=== PATIENT | female | born 1965 | race Caucasian/White ===

== ENCOUNTER 2018-09-09 02:48 | Observation (INO) ==
[2018-09-09 02:52] VITALS: BP 134/76; PULSE 60; RESP 16; TEMP 97.6
[2018-09-09] MEDS ORDERED: Morphine Inj 4 MG/ML Vial IV.PUSH ONE (03:08)
--- NOTE | 2018-09-09 03:14 | ED ---
HPI General Chief Complaint: Chest Pain Stated Complaint: Pain all over Time Seen by Provider: 09/09/18 03:00 Source: patient Mode of arrival: ambulatory Limitations: no limitations History of Present Illness MD complaint: Reports chest pain STEMI Alert: No Onset (ago): day(s) (3) Duration: constant and progressively worsening Pain location: Reports substernal and right chest Quality: Reports other (Indigestion) Pain radiation: Reports back, jaw/teeth and abdomen Relieving factors: nothing (Unrelieved by Pepcid AC and Tums) Exacerbating factors: nothing Context: Reports recent illness Associated symptoms: Reports dyspnea and other (Chills and a large loose stool just prior to arrival); Denies nausea and vomiting Treatments prior to arrival chest pain: Reports other (Antacids) Related Data On Oral Contraceptives: No Home Medications Medication Instructions Recorded Confirmed Statin PO DAILY 09/09/18 Allergies Allergy/AdvReac Type Severity Reaction Status Date / Time No Known Allergies Allergy Verified 09/09/18 02:49 Review of Systems ROS: all other systems reviewed are negative [facility] Medical History Medical History High cholesterol (Acute) History of hysterectomy (Acute) Surgical History Surgical History History of section (Acute) History of oophorectomy (Acute) Social History Social History Smoking Status: Never smoker How Often Do You Have a Drink Containing Alcohol: Monthly or less Recent Travel in [facility] within the Last 8 Weeks: No Recent Out of Country Travel within the Last 8 Weeks: No Immunization History Tetanus Immunization: Unsure Exam Const General: cooperative, healthy appearing and comfortable Orientation: alert, awake and oriented x3 HENMT Head: normal to inspection, normocephalic and atraumatic Eyes General: appearance normal, both eyes and all related structures Conjunctivae: conjunctivae normal Sclera: sclerae normal EOM: EOM intact bilaterally Neck Neck: normal visual inspection and full ROM Chest Chest: normal inspection of the chest and tenderness Resp Effort & Inspection: normal respiratory effort and able to speak in complete sentences Auscultation: clear to auscultation bilaterally Cardio Rate: regular rate Rhythm: regular rhythm Heart Sounds: S1 normal and S2 normal GI Inspection: normal to inspection Palpation: soft, no guarding and tender in the epigastrum, in the LUQ and in the RUQ Back/Spine/Pelvis Cervical Spine: cervical ROM normal Thoracic/Lumbar Spine: thoraco-lumbar ROM normal Skin General: no rashes or lesions noted, turgor normal and dry skin Neuro General: alert, awake, oriented x3, moves all extremities and CN's II-XI intact bilaterally Extrem General: normal to inspection, full ROM and no pedal edema Psych Appearance: grossly normal Mental Status: mental status grossly normal Speech and Movement: speech and movement normal Mood: congruent mood Affect: normal affect Attitude: cooperative Thought Process: normal Thought Content: normal Judgment: judgment good Course Initial Documented Vital Signs Temperature 97.6 F 09/09/18 02:49 Pulse Rate 60 09/09/18 02:49 Respiratory Rate 16 09/09/18 02:49 Blood Pressure 134/76 09/09/18 02:49 Pulse Oximetry 99 09/09/18 02:49 Last Documented Vital Signs Temperature 97.6 F 09/09/18 02:49 Pulse Rate 60 09/09/18 02:49 Respiratory Rate 16 09/09/18 02:49 Blood Pressure 134/76 09/09/18 02:49 Pulse Oximetry 98 09/09/18 14:53 Medical Decision Making MDM Narrative Medical decision making narrative: This patient presents with a chief complaint of chest pain. However, she also has some abdominal pain and diarrhea. An IV will be started and she will be given IV morphine and Zofran. She has also been given an aspirin. Chest pain evaluation is in process. I have added a CT of her abdomen and pelvis as well as a lipase for further evaluation of the abdominal pain. My initial plan would be to admit her to the chest pain center if her initial evaluation is negative. However, that plan may change if something turns up with her abdominal evaluation. Her CT of the abdomen and pelvis shows a hyperdense right renal mass and a low- density left renal mass. She also has some hypervascular liver lesions. Radiologist recommends MRI for further evaluation. This has been ordered. The patient has been made aware of the findings. She reports that she has a known history of at least one renal cyst which is being followed. She states that she has never been told that there was a problem in her liver. In the meantime, she states she feels a lot better. I will repeat her troponin. 10:35 AM. Patient was seen by ED physician and signed out to me. MRI of the abdomen shows no acute process. EKG shows NSR, no ST elevation or depression, and no arrhythmias. No significant T-wave inversions. Cardiac enzymes x2 sets showed no acute process. Patient will be admitted to chest pain center. Medical Screen Exam Complete: Yes Emergency Medical Condition: Yes Differential Diagnosis Differential Diagnosis: Differential diagnosis of chest pain includes but is not limited to musculoskeletal pain, pulmonary embolism, acute coronary syndrome , pneumonia, pleurisy Differential diagnosis of abdominal pain includes but is not limited to gastritis, pancreatitis, hepatitis, gastroenteritis, constipation, urinary retention, peptic ulcer disease, diverticulitis or appendicitis Lab Data Lab results reviewed: Yes I reviewed the patient's lab results. Result diagrams: 09/09/18 03:00 09/09/18 03:00 Lab Results 09/09/18 09/09/18 09/09/18 Range/Units 03:00 03:00 06:00 WBC 7.1 (4.0-11.0) th/mm3 RBC 4.75 (4.00-5.30) mil/mm3 Hgb 14.8 (11.6-15.3) gm/dL Hct 41.8 (35.0-46.0) % MCV 88.0 (80.0-100.0) fL MCH 31.1 (27.0-34.0) pg MCHC 35.3 (32.0-36.0) % RDW 13.5 (11.6-17.2) % Plt Count 238 (150-450) th/mm3 MPV 8.3 (7.0-11.0) fL Neut % (Auto) 58.4 (16.0-70.0) % Lymph % (Auto) 26.7 (9.0-44.0) % Lincoln % (Auto) 9.8 H (0.0-8.0) % Eos % (Auto) 4.2 H (0.0-4.0) % Baso % (Auto) 0.9 (0.0-2.0) % Neut # (Auto) 4.2 (1.8-7.7) th/mm3 Lymph # (Auto) 1.9 (1.0-4.8) th/mm3 Lincoln # (Auto) 0.7 (0.0-0.9) th/mm3 Eos # (Auto) 0.3 (0.0-0.4) th/mm3 Baso # (Auto) 0.1 (0.0-0.2) th/mm3 WBC Differential . Differential Comment Auto diff final Sodium 141 (136-145) meq/L Potassium 4.2 (3.5-5.1) meq/L Chloride 108 H (98-107) meq/L Carbon Dioxide 28.3 (21.0-32.0) meq/L Anion Gap 5 (5-15) meq/L BUN 15 (7-18) mg/dL Creatinine 0.82 (0.50-1.00) mg/dL Estimated GFR 73 L (>89) mL/min Random Glucose 98 (74-106) mg/dL Calcium 8.9 (8.5-10.1) mg/dL Total Bilirubin 0.3 (0.2-1.0) mg/dL AST 19 (15-37) U/L ALT 30 (10-53) U/L Alkaline Phosphatase 83 (45-117) U/L Total Creatine Kinase (26-192) U/L CK-MB (CK-2) (0.5-3.6) ng/mL Troponin I Less than 0.02 L Less than 0.02 L (0.02-0.05) ng/mL Total Protein 6.9 (6.4-8.2) g/dL Albumin 3.3 L (3.4-5.0) g/dL Lipase 164 (73-393) U/L 09/09/18 09/09/18 Range/Units 10:55 10:55 WBC (4.0-11.0) th/mm3 RBC (4.00-5.30) mil/mm3 Hgb (11.6-15.3) gm/dL Hct (35.0-46.0) % MCV (80.0-100.0) fL MCH (27.0-34.0) pg MCHC (32.0-36.0) % RDW (11.6-17.2) % Plt Count (150-450) th/mm3 MPV (7.0-11.0) fL Neut % (Auto) (16.0-70.0) % Lymph % (Auto) (9.0-44.0) % Lincoln % (Auto) (0.0-8.0) % Eos % (Auto) (0.0-4.0) % Baso % (Auto) (0.0-2.0) % Neut # (Auto) (1.8-7.7) th/mm3 Lymph # (Auto) (1.0-4.8) th/mm3 Lincoln # (Auto) (0.0-0.9) th/mm3 Eos # (Auto) (0.0-0.4) th/mm3 Baso # (Auto) (0.0-0.2) th/mm3 WBC Differential Differential Comment Sodium (136-145) meq/L Potassium (3.5-5.1) meq/L Chloride (98-107) meq/L Carbon Dioxide (21.0-32.0) meq/L Anion Gap (5-15) meq/L BUN (7-18) mg/dL Creatinine (0.50-1.00) mg/dL Estimated GFR (>89) mL/min Random Glucose (74-106) mg/dL Calcium (8.5-10.1) mg/dL Total Bilirubin (0.2-1.0) mg/dL AST (15-37) U/L ALT (10-53) U/L Alkaline Phosphatase (45-117) U/L Total Creatine Kinase 116 (26-192) U/L CK-MB (CK-2) Less than 1.0 (0.5-3.6) ng/mL Troponin I Less than 0.02 L (0.02-0.05) ng/mL Total Protein (6.4-8.2) g/dL Albumin (3.4-5.0) g/dL Lipase (73-393) U/L Imaging Data Attestation: I personally reviewed and interpreted this imaging study as follows : Radiologist's impression: Chest X-Ray 09/09/18 03:02 CONCLUSION: Negative examination. Abdomen/Pelvis CT 09/09/18 03:08 CONCLUSION: 1. Ventral hernia. 2. Tiny low-density liver lesions are too small to characterize by CT criteria as well as 2 hypervascular liver lesions. 3. Hyperdense right renal mass and low-density left renal mass are incompletely characterized on this study. 4. Left ovarian cysts. 5. No inflammatory changes are seen in the abdomen or pelvis. 6. MRI of the abdomen with and without contrast may be helpful for further evaluation of the above findings. Abdomen MRI 09/09/18 04:27 CONCLUSION: 1. The right kidney lesion described on recent CT measures only 6 mm and demonstrates no definite enhancement and likely represents a hemorrhagic cyst. However, given the questionable enhancement along the periphery suggest follow- up to confirm stability. A one-year follow-up would be reasonable. 2. The liver finding on recent CT is indeterminate and does not definitely represent a true lesion and may represent an altered area of perfusion. However , attention can be paid to this at the time of the right kidney follow-up. ECG Data EKG Prior to Arrival: No Attestation: I personally reviewed and interpreted this ECG as follows: (Normal sinus rhythm with a rate of 60. No acute STT wave changes.) Discharge Plan Discharge Disposition Patient Disposition: ED Admit(ED Internal Use Only) Discharge Condition Condition: Stable Discharge Order Discharge Orders: Discharge Order (Routine); Ordered 09/09/18 Ordered By: Ravin Courtney ED Use Only Admit Order (Routine); Ordered 09/09/18 Ordered By: Yuval Etienne Discharge Details Diagnosis: Chest pain Physicians Team ED Provider: Olivia Jones Primary Care Provider: Primary Care Betty Solis Attending Provider: Ashutosh Shepherd Status ED Status: Left Department Discharge Information Discharge Date/Time: 09/09/18 12:56
--- NOTE | 2018-09-09 03:34 | XR ---
EXAM DATE: 09/09/2018 3:17 AM EST AGE/SEX: 52 years / Female INDICATIONS: Chest pain, center. Patient states diffuse body aches with pressure in the center of he r chest for 2 days. CLINICAL DATA: This is the patient's initial encounter. Patient reports that signs and symptoms have been present for 2 days and indicates a pain score of 2/10. MEDICAL/SURGICAL HISTORY: None. None. COMPARISON: No prior exams available for comparison. FINDINGS: A single AP view of the chest demonstrates the lungs to be symmetrically aerated without evidence of mass, infiltrate or effusion. The cardiomediastinal contours are unremarkable. Osseous structures a re intact. CONCLUSION: Negative examination. Electronically signed by: Joel Cowan MD 09/09/2018 3:33 AM EST
[2018-09-09 03:38] LABS: Alanine Aminotransferase 30 U/L (10-53); Albumin 3.3 g/dL (3.4-5.0); Anion Gap 5 meq/L (5-15); Aspartate Aminotransferase 19 U/L (15-37); Blood Urea Nitrogen 15 mg/dL (7-18); Calcium 8.9 mg/dL (8.5-10.1); Carbon Dioxide 28.3 meq/L (21.0-32.0); Chloride 108 meq/L (98-107); Glomerular Filtration Rate 73 mL/min (>89); Glucose,Random 98 mg/dL (74-106); Lipase 164 U/L (73-393); Potassium 4.2 meq/L (3.5-5.1); Sodium 141 meq/L (136-145)
[2018-09-09 03:40] LABS: Baso # (Auto) 0.1 th/mm3 (0.0-0.2); Baso % (Auto) 0.9 % (0.0-2.0); Eos # (Auto) 0.3 th/mm3 (0.0-0.4); Eos % (Auto) 4.2 % (0.0-4.0); Hematocrit 41.8 % (35.0-46.0); Hemoglobin 14.8 gm/dL (11.6-15.3); Lymph # (Auto) 1.9 th/mm3 (1.0-4.8); Lymph % (Auto) 26.7 % (9.0-44.0); Mean Corpuscular HGB Conc 35.3 % (32.0-36.0); Mean Corpuscular Hemoglobin 31.1 pg (27.0-34.0); Mean Platelet Volume 8.3 fL (7.0-11.0); Mono # (Auto) 0.7 th/mm3 (0.0-0.9); Mono % (Auto) 9.8 % (0.0-8.0); Neut # (Auto) 4.2 th/mm3 (1.8-7.7); Neut % (Auto) 58.4 % (16.0-70.0); Platelet Count 238 th/mm3 (150-450); Red Blood Count 4.75 mil/mm3 (4.00-5.30); Red Cell Distribution Width 13.5 % (11.6-17.2); White Blood Count 7.1 th/mm3 (4.0-11.0)
[2018-09-09 03:42] LABS: Alkaline Phosphatase 83 U/L (45-117); Total Protein 6.9 g/dL (6.4-8.2)
--- NOTE | 2018-09-09 04:23 | CT ---
EXAM DATE: 09/09/2018 3:52 AM EST AGE/SEX: 52 years / Female INDICATIONS: Upper abdominal pain, diarrhea. CLINICAL DATA: This is the patient's initial encounter. Patient reports that signs and symptoms have been present for 3 days and indicates a pain score of 8/10. MEDICAL/SURGICAL HISTORY: None. Hysterectomy. section. Oophorectomy. ORAL CONTRAST: No oral contrast ingested. RADIATION DOSE: 9.23 CTDI (mGy) COMPARISON: No prior exams available for comparison. TECHNIQUE: Multiple contiguous axial images were obtained through the abdomen and pelvis following b olus infusion of 100 ml Omnipaque 350 (iohexol) nonionic water-soluble contrast as a single exam do se. No oral contrast ingested. Using automated exposure control and adjustment of the mA and/or kV a ccording to patient size, radiation dose was kept as low as reasonably achievable to obtain optimal d iagnostic quality images. DICOM format image data is available electronically for review and compari son. FINDINGS: Lung bases are clear. Osseous structures are intact. No pleural or pericardial effusions. There are s cattered tiny low-density liver lesions which are incompletely characterized on this study. There is a 1.5 cm hypervascular focus in the right lobe of the liver posteriorly on image 14, and a similar bu t smaller appearing focus on image 28 in the right lobe. The spleen, pancreas, gallbladder, adrenal g lands, stomach unremarkable. Left lower pole kidney low-density lesion measuring 4.4 mm laterally. Th is is too small to characterize. At the lower pole of the right kidney 8.8 mm exophytic mass is seen measuring 82 Hounsfield units. A hemorrhagic or proteinac eous cyst would be the leading consideration. A solid mass is felt less likely though not entirely ex cluded. 5 mm cyst right lower pole kidney. Urinary bladder is unremarkable. There are 2 small cysts s uspected at the level of the left ovary. The right ovary is not visible. The appendix is normal. Ther e is no adenopathy. There is diastases of the rectus abdominous musculature with ventral hernia measu ring 10.5 x 5.4 cm in transverse and AP dimension containing small and large bowel loops and fat. CONCLUSION: 1. Ventral hernia. 2. Tiny low-density liver lesions are too small to characterize by CT criteria as well as 2 hypervas cular liver lesions. 3. Hyperdense right renal mass and low-density left renal mass are incompletely characterized on thi s study. 4. Left ovarian cysts. 5. No inflammatory changes are seen in the abdomen or pelvis. 6. MRI of the abdomen with and without contrast may be helpful for further evaluation of the above f indings. Electronically signed by: Joel Cowan MD 09/09/2018 4:22 AM EST
[2018-09-09] MEDS ORDERED: Gadobutrol PF 2 MMOL/2 ML Vial (for RAD) IV.SIG ONE (10:13)
--- NOTE | 2018-09-09 10:50 | MR ---
EXAM DATE: 09/09/2018 10:07 AM EST AGE/SEX: 52 years / Female INDICATIONS: Abnormal CT scan. CLINICAL DATA: This is the patient's initial encounter. Patient reports that signs and symptoms have been present for 3 days and indicates a pain score of 5/10. MEDICAL/SURGICAL HISTORY: Hypercholesterolemia. Hysterectomy. COMPARISON: [facility] [place], CT ABDOMEN & PELVIS W CONTRAST, 09/09/2018. [facility], CT ABDOMEN W/O CONTRAST, 2015. . TECHNIQUE: Multiplanar, multisequence images of the abdomen were obtained prior to and following adm inistration of 8 ml Gadavist (gadobutrol) contrast as a single exam dose with dynamic multiphase tech nique. FINDINGS: Liver: The liver measures 18.1 cm in length and demonstrates overall normal signal intensity without fat or iron deposition. The area of enhancement described on recent CT is not associated with any abn ormal T2 signal. It demonstrates increased perfusion in this area on arterial phase and then subseque ntly becomes minimally hypointense to the background liver but on the last postcontrast phases it is occult. This finding measures approximately 1.5 cm. There additionally are multiple tiny T2 hyperinte nse nonenhancing lesions scattered throughout both lobes measuring up to 7 mm. Hepatic vasculature is within normal limits. There is no intrahepatic bile duct dilatation. Gallbladder: No gallstones visualized. There is no wall thickening or inflammation. Spleen: Within normal limits. Pancreas: Within normal limits. Adrenals: Within normal limits. Kidneys: Symmetric size and enhancement without hydronephrosis. In the lower pole of the right kidney there is a T2 hyperintense nonenhancing simple cyst measuring 6 mm and the lesion described on recen t CT is a T2 hypointense and T1 isointense measuring 6 mm. It demonstrates no definite internal enhan cement but there is questionable enhancement along the periphery. No concerning lesion is identified in the left kidney. There is a nonenhancing simple cyst at the lower pole measuring 6 mm. Other: Aorta is nonaneurysmal. No lymphadenopathy is visualized. The remaining surrounding structur es demonstrate no acute abnormality. CONCLUSION: 1. The right kidney lesion described on recent CT measures only 6 mm and demonstrates no definite en hancement and likely represents a hemorrhagic cyst. However, given the questionable enhancement along the periphery suggest follow-up to confirm stability. A one-year follow-up would be reasonable. 2. The liver finding on recent CT is indeterminate and does not definitely represent a true lesion a nd may represent an altered area of perfusion. However, attention can be paid to this at the time of the right kidney follow-up. Electronically signed by: Sundeep Barton MD 09/09/2018 10:49 AM EST
[2018-09-09 12:13] LABS: Creatine Kinase 116 U/L (26-192)
--- NOTE | 2018-09-09 12:51 | P.HPCA ---
History of Present Illness Primary Care Physician: No Primary Care Physician Chief Complaint: Chest pain History of Present Illness: This is a 52-year-old female history of hyperlipidemia that presents to ED with complaint of 2-3 days of intermittent central chest discomfort that she describes as a pressure. Denies shortness of breath, nausea, or diaphoresis. Found nothing in particular going on. When it occurs will last a couple minutes however last evening when he began around 10:00 last longer. Last for several hours until getting IV morphine in the emergency department. The discomfort seems to radiate to her right breast and also to both sides of her jaw. She will nothing to worsen or improve the symptoms at home. She states she has had a stress test in the past, about 8 years ago she had a stress test that she states was normal. 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 Currently feeling okay. She apparently had large amount of watery stool last evening prior to coming to the hospital. She states about the same time she had a little bit of a discomfort in her abdomen. That has resolved. She also states that she has been under a lot of stress and wonders if that could be causing her discomfort. States she just got the inventing to 1 of her girlfriends over the phone and is feeling better already. History of hyperlipidemia. Denies hypertension, diabetes, CAD. Lifetime non-smoker. Denies alcohol. Rarely has marijuana. She is . Denies family history of CAD. - Diagnosis (1) Chest pain (2) Hyperlipidemia Review of Systems General: Patient denies fevers, chills, and recent travel. HEENT: Patient denies headache, sore throat, difficulty swallowing. Cardiovascular: Has the chest discomfort as mentioned above. Denies sensation of heart beating rapidly or irregularly. No syncope. Denies diaphoresis. Respiratory: Denies shortness of breath or inspirational chest discomfort. Denies coughing wheezing or hemoptysis. GI: She had one episode of which she describes a large amount of watery stool last evening prior to coming to the ED and about the same time she had a little bit of discomfort in her abdomen. Patient denies nausea, vomiting, bloody stools. Musculoskeletal: Patient denies joint pain or edema. Denies calf pain or edema. Neurovascular: Patient denies numbness, tingling, weakness in extremities. Denies headache. Endocrine: Denies polyuria and polydipsia. Hematologic: Denies easy bruising. Skin: Denies rash or itching. PMFSH - History History Provided By: Patient - Medical History Medical History: Medical History (Last Reviewed 09/09/18 @ 03:11 by Olivia Jones) High cholesterol History of hysterectomy - Surgical History Surgical History: Surgical History (Last Reviewed 09/09/18 @ 03:11 by Olivia Jones) History of section History of oophorectomy - Tobacco History Smoking Status: Never smoker - Alcohol History How Often Do You Have a Drink Containing Alcohol: Monthly or less - Travel History Recent Travel in the [facility] Within the Last 8 Weeks: No Recent Travel Out of the Country Within the Last 8 Weeks: No - Immunization History Tetanus Immunization: Unsure Medications and Allergies Active Medications: Active Medications Sodium Chloride (Ns Flush) 2 ml IV.FLUSH UNSCH PRN PRN Reason: FLUSH AFTER USING IV ACCESS Allergies Allergy/AdvReac Type Severity Reaction Status Date / Time No Known Allergies Allergy Verified 09/09/18 02:49 Home Medications Medication Instructions Recorded Confirmed Type Statin PO DAILY 09/09/18 History Exam Vital signs: Vital Signs 09/09/18 02:49 Temperature 97.6 F Pulse Rate 60 Respiratory Rate 16 Blood Pressure 134/76 Pulse Oximetry 99 Intake & Output 09/08/18 09/09/18 09/09/18 18:59 06:59 18:59 Weight 81.647 kg Narrative: GENERAL: This is a well-nourished, well-developed patient, in no apparent distress. Patient speaks in clear complete sentences. Patient is pleasant. HEENT: Head is atraumatic and normocephalic. Neck is supple without lymphadenopathy and trachea is midline. No JVD or carotid bruits. CARDIOVASCULAR: Regular rate and rhythm without murmurs, gallops, or rubs. RESPIRATORY: Clear to auscultation. Breath sounds equal bilaterally. No wheezes , rales, or rhonchi. Chest wall is tender but does not feel similar to the discomfort that brought her to the ED. No use of accessory muscles. GASTROINTESTINAL: Abdomen is nontender, nondistended. Abdomen soft. No obvious pulsatile mass or bruit. No CVA tenderness. Strong femoral pulses bilaterally. Normal bowel sounds in all quadrants. MUSCULOSKELETAL: Patient is moving upper and lower extremities freely. No calf tenderness or edema, no Homans sign. Strong pulses in upper and lower extremities. NEUROLOGICAL: Patient is alert and oriented. Cranial nerves 2-12 are grossly intact. No focal deficits and speech is clear. SKIN: No rash and turgor is normal. Results 09/09/18 03:00 09/09/18 03:00 Cardiac Enzymes 09/09/18 09/09/18 09/09/18 Range/Units 03:00 06:00 10:55 AST 19 (15-37) U/L CK-MB (CK-2) (0.5-3.6) ng/mL Troponin I Less than 0.02 L Less than 0.02 L Less than 0.02 L (0.02-0.05) ng/mL 09/09/18 Range/Units 10:55 AST (15-37) U/L CK-MB (CK-2) Less than 1.0 (0.5-3.6) ng/mL Troponin I (0.02-0.05) ng/mL CBC 09/09/18 Range/Units 03:00 WBC 7.1 (4.0-11.0) th/mm3 RBC 4.75 (4.00-5.30) mil/mm3 Hgb 14.8 (11.6-15.3) gm/dL Hct 41.8 (35.0-46.0) % Plt Count 238 (150-450) th/mm3 Neut # (Auto) 4.2 (1.8-7.7) th/mm3 Lymph # (Auto) 1.9 (1.0-4.8) th/mm3 Lamar # (Auto) 0.7 (0.0-0.9) th/mm3 Eos # (Auto) 0.3 (0.0-0.4) th/mm3 Baso # (Auto) 0.1 (0.0-0.2) th/mm3 Comprehensive Metabolic Panel 09/09/18 Range/Units 03:00 Sodium 141 (136-145) meq/L Potassium 4.2 (3.5-5.1) meq/L Chloride 108 H (98-107) meq/L Carbon Dioxide 28.3 (21.0-32.0) meq/L BUN 15 (7-18) mg/dL Creatinine 0.82 (0.50-1.00) mg/dL Calcium 8.9 (8.5-10.1) mg/dL AST 19 (15-37) U/L ALT 30 (10-53) U/L Alkaline Phosphatase 83 (45-117) U/L Total Protein 6.9 (6.4-8.2) g/dL Albumin 3.3 L (3.4-5.0) g/dL Intake and Output 09/08/18 09/09/18 09/09/18 22:59 06:59 14:59 Other: Weight 81.647 kg - Imaging and Cardiology Imaging: Impressions Chest X-Ray 09/09/18 03:02 CONCLUSION: Negative examination. Abdomen/Pelvis CT 09/09/18 03:08 CONCLUSION: 1. Ventral hernia. 2. Tiny low-density liver lesions are too small to characterize by CT criteria as well as 2 hypervascular liver lesions. 3. Hyperdense right renal mass and low-density left renal mass are incompletely characterized on this study. 4. Left ovarian cysts. 5. No inflammatory changes are seen in the abdomen or pelvis. 6. MRI of the abdomen with and without contrast may be helpful for further evaluation of the above findings. Abdomen MRI 09/09/18 04:27 CONCLUSION: 1. The right kidney lesion described on recent CT measures only 6 mm and demonstrates no definite enhancement and likely represents a hemorrhagic cyst. However, given the questionable enhancement along the periphery suggest follow- up to confirm stability. A one-year follow-up would be reasonable. 2. The liver finding on recent CT is indeterminate and does not definitely represent a true lesion and may represent an altered area of perfusion. However , attention can be paid to this at the time of the right kidney follow-up. EKG interpretations - EKG EKG shows: bradycardia (EKGs are sinus bradycardia without significant ST segment depressions or elevations. There is first-degree AV block.) Caprini VTE Risk Assessment Caprini VTE Risk Assessment: No/Low Risk (score <= 1) Caprini Risk Assessment Model: Point Value = 1 Point Value = 2 Point Value = 3 Point Value = 5 Age 41-60 Minor surgery BMI > 25 kg/m2 Swollen legs Varicose veins or History of unexplained or recurrent spontaneous Oral contraceptives or hormone replacement Sepsis (< 1 month) Serious lung disease, including pneumonia (< 1 month) Abnormal pulmonary function Acute myocardial infarction Congestive heart failure (< 1 month) History of inflammatory bowel disease Medical patient at bed rest Age 61-74 Arthroscopic surgery Major open surgery (> 45 min) Laparoscopic surgery (> 45 min) Malignancy Confined to bed (> 72 hours) Immobilizing plaster cast Central venous access Age >= 75 History of VTE Family history of VTE Factor V Leiden Prothrombin [id number] Lupus anticoagulant Anticardiolipin antibodies Elevated serum homocysteine Heparin-induced thrombocytopenia Other congenital or acquired thrombophilia Stroke (< 1 month) Elective arthroplasty Hip, pelvis, or leg fracture Acute spinal cord injury (< 1 month) Prophylaxis Regimen: Total Risk Factor Score Risk Level Prophylaxis Regimen 0-1 Low Early ambulation 2 Moderate Order ONE of the following: *Sequential Compression Device (SCD) *Heparin 5000 units SQ BID 3-4 Higher Order ONE of the following medications: *Heparin 5000 units SQ TID *Enoxaparin/Lovenox 40 mg SQ daily (WT < 150 kg, CrCl > 30 mL/min) *Enoxaparin/Lovenox 30 mg SQ daily (WT < 150 kg, CrCl > 10-29 mL/min) *Enoxaparin/Lovenox 30 mg SQ BID (WT < 150 kg, CrCl > 30 mL/min) AND/OR *Sequential Compression Device (SCD) 5 or more Highest Order ONE of the following medications: *Heparin 5000 units SQ TID (Preferred with Epidurals) *Enoxaparin/Lovenox 40 mg SQ daily (WT < 150 kg, CrCl > 30 mL/min) *Enoxaparin/Lovenox 30 mg SQ daily (WT < 150 kg, CrCl > 10-29 mL/min) *Enoxaparin/Lovenox 30 mg SQ BID (WT < 150 kg, CrCl > 30 mL/min) AND *Sequential Compression Device (SCD) Assessment and Plan - Assessment (1) Chest pain Code(s): R07.9 - Chest pain, unspecified Status: Acute (2) Hyperlipidemia Code(s): E78.5 - Hyperlipidemia, unspecified Status: Acute - Plan * Chest pain: Patient has had serial cardiac enzymes and EKGs for ruling out purposes. His pain center and undergo a Vidal protocol ETT. She will be discharged home if her stress test is nonischemic with instructions to follow- up with PCP. Return to ED for interval issues. * Hyperlipidemia: She is to continue her medication. She cannot recall the name of it but states takes 20 mg of the cholesterol medicine. Patient is stable at this time. She is agreeable to this plan. (1) Chest pain Qualifiers: Chest pain type: unspecified Qualified Code(s): R07.9 - Chest pain, unspecified
--- NOTE | 2018-09-09 14:43 | ECG ---
Date Performed: 09/09/2018 Time Performed: 02:58:24 PTAGE: 52 years EKG: Sinus rhythm WITH FIRST DEGREE AV BLOCK ABNORMAL ECG NO PREVIOUS TRACING DOCTOR: Ashutosh Shepherd Interpretating Date/Time 09/09/2018 14:40:54
--- NOTE | 2018-09-09 14:49 | TR ---
Date Performed: 09/09/2018 Time Performed: 13:24:39 DOCTOR: Ashutosh Shepherd DRUG LIST: CLINICAL HISTORY: CHEST PAIN REASON FOR TEST: REASON FOR ENDING: OBSERVATION: CONCLUSION: BERT PROTOCOL ETT. NO CP. TEST STOPPED AFTER EXCEEDING GOAL HR SECONDARY TO SOB AND LEG FATGIGUE.Maximum HI=667 % Max HR Achieved=89.0% Maximum SX=314/68 Total Exercise Time=8:00 COMMENTS: Patient exercised using the Bert protocol. No electrocardiographic changes were seen to suggest ischemia. Hemodynamic response to exercise was normal. No significant arrhythmia was prese nt.
--- NOTE | 2018-09-09 14:49 | ECG ---
Date Performed: 09/09/2018 Time Performed: 11:55:07 PTAGE: 52 years EKG: SINUS BRADYCARDIA WITH FIRST DEGREE AV BLOCK ABNORMAL ECG PREVIOUS TRACING : 09/09/2018 02.58 Since previous tracing, no significant change noted DOCTOR: Ashutosh Shepherd Interpretating Date/Time 09/09/2018 14:47:28
[2018-09-09 14:53] VITALS: O2SAT 98
== END 2018-09-09 15:24 | disposition home or self-care (01) ==
LOC: NEPE 02:48 → NEDA 02:48 → NEPGCP 12:50
PROVIDERS: ADMIT Internal Medicine Cardiovascular Disease; ATTEND Internal Medicine Cardiovascular Disease
DX: R07.9 Chest pain, unspecified; E78.00 Pure hypercholesterolemia, unspecified; Z90.710 Acquired absence of both cervix and uterus; Z98.891 History of uterine scar from previous surgery; E78.5 Hyperlipidemia, unspecified